=== PATIENT | female | born 1970 | race Caucasian/White ===

== ENCOUNTER 2024-08-07 19:42 | Emergency (ER) | payer OTHER, SELFPAY ==
[2024-08-07 19:51] VITALS: BP 177/100
[2024-08-07 20:05] VITALS: BP 160/84
[2024-08-07 20:13] VITALS: BMI 21.1
[2024-08-07 20:21] LABS: % Basophils 0.4 % (0-2); % Eosinophils 0.8 % (0-6); % Immature Granulocytes 0.2 % (0-0.5); % Lymphocytes 17.8 % (20.5-51.1); % Monocytes 4.6 % (1.7-9.3); % Neutrophils 76.2 % (42.2-75.2); Absolute Eosinophils 0.1 10^3/uL (0-0.7); Absolute Lymphocytes 1.6 10^3/uL (1.2-3.4); Absolute Monocytes 0.4 10^3/uL (0.1-0.6); Absolute Neutrophils 6.9 10^3/uL (1.4-6.5); Hematocrit 37.8 % (37.0-47.0); Hemoglobin 12.9 g/dL (12.0-16.0); Mean Corp Hgb Conc. 34.1 g/dL (33.0-37.0); Mean Corpuscular Hgb 29.9 pg (27.0-31.0); Mean Corpuscular Volume 87.5 fL (81.0-99.0); Mean Platelet Volume 10.4 fL (7.4-10.4); Nucleated Red Blood Cells % 0 %; Platelet Count 268 10^3/uL (130-400); Red Blood Cell Count 4.32 10^6/uL (4.20-5.40); Red Cell Dist. Width 11.9 % (11.5-14.5)
[2024-08-07 20:43] LABS: Urine Albumin Trace (Neg - Trace); Urine Bilirubin Negative (Negative); Urine Character Clear (Clear); Urine Color Yellow; Urine Glucose Negative (Negative); Urine Ketone Negative (Negative); Urine Leukocyte 2+ (Negative); Urine Nitrite Negative (Negative); Urine Occult Blood 4+ (Negative); Urine Urobilinogen Negative (Neg - 1+); Urine pH 6.5 (5.0-9.0)
--- NOTE | 2024-08-07 20:51 | ED.GENMED ---
Addendum entered and electronically signed by JOHNSON Moss 08/11/24 10:10:
Patient's urine culture shows E. coli however resistant to Cipro. I spoke with patient home over the phone. She is feeling better she denies any symptoms. Denies any back pain nausea vomiting fever chills urinary symptoms however will switch to
cefdinir. I did send this medication to patient's pharmacy discussed close outpatient follow-up family doctor and return if any worsening of symptoms.
Original Note:
History of Present Illness
<Leticia Hickman NP - Last Filed: 08/07/24 22:53>
General
Chief Complaint: Flank Pain
Source: patient
Exam Limitations: none
Time Seen by Provider: 08/07/24 20:04
Nursing documentation reviewed up to this point in time: agreed with
History of Present Illness
History of Present Illness:
Patient to ED with complaint of left flank pain. Symptoms started approx 1 week ago andcontinue to worsen. Denies fever/chills. No n/v. To ED accompanied by spouse for eval.
Past History
<Lteicia Hickman NP - Last Filed: 08/07/24 22:53>
Past History
ED Past Medical History: HTN
ED Past Surgical History: Gynecological (Tubal ligation)
Social History
Tobacco: Non-smoker
Alcohol: None
Drug: None
Review of Systems
<Leticia Hickman NP - Last Filed: 08/07/24 22:53>
Review of Systems
Allergies reviewed?: Yes
All Other Systems: ROS reviewed and negative except as documented in HPI and ROS
Constitutional: Reports no symptoms
EENT: Reports no symptoms
Respiratory: Reports no symptoms
Cardiac: Reports no symptoms
ABD/GI: Reports no symptoms
: Reports flank pain (left flank pain)
Musculoskeletal: Reports no symptoms
Skin: Reports no symptoms
Neurological: Reports no symptoms
Psychiatric: Reports no symptoms
Phy Exam
<Leticia Hickman CORING MACHINE OPERATOR - Last Filed: 08/07/24 22:53>
General Physical Exam
General Presentation: well appearing and no apparent distress
General age: appears stated age
General Skin: warm and dry
General Habitus: normal
General Mental: alert
Cardiovascular Exam
Cardiovascular Exam: regular rate/rhythm and no edema
Gastrointestinal Exam
Gastrointestinal Exam: normal bowel sounds, non tender, soft, no organomegaly and non distended
Musculoskeletal Exam
Musculoskeletal Exam: full ROM and neuro vasc intact
Skin Exam
Skin Exam: normal color, warm/dry and no rash
Psychiatric Exam
Psychiatric Exam: normal mood/affect
Course
<Leticia Hickman CORING MACHINE OPERATOR - Last Filed: 08/07/24 22:53>
Orders/Labs/Results
Orders:
Orders
08/07/24 20:15
CBC/With Diff [Complete Blood Count/With Diff] Urgent
CMP [Comprehensive Metabolic Panel] Urgent
Urinalysis Reflex To Culture Urgent
Date Specimen was Collected: 08/07/24
Time Specimen was Collected: 20:12
Urine Microscopic Reflex Cult Urgent
Urine Culture Urgent
LORIN Source: U
Specimen Description:
Date Specimen was Collected: 08/07/24
Time Specimen was Collected: 20:12
08/07/24 20:50
CT Abd/pel Without Iv Or Oral Urgent
Comment:
Reason For Exam: Left flank pain
Ketorolac [Toradol] 30 mg IV NOW STA
08/07/24 21:55
Ciprofloxacin HCl [Cipro] 500 mg PO NOW STA
Abnormal Lab Results
08/07/24
20:15
Absolute Neuts (auto) 6.9 H 10^3/uL
(1.4-6.5)
Neutrophils % 76.2 H %
(42.2-75.2)
Lymphocytes % 17.8 L %
(20.5-51.1)
BUN 21 H mg/dl
(7-17)
Glucose 133 H mg/dl
(70-99)
Ur Occult Blood Reflex 4+ A
(Negative)
Leukocyte Esterase Rfl 2+ A
(Negative)
Urine RBC 11-15 A /HPF
(0-2)
Urine WBC (Reflex) 90-100 A /HPF
(0-5)
Urine Bacteria (Reflex) Moderate A
(Negative)
08/07/24 20:15
08/07/24 20:15
Vital Signs
Initial and Last Documented VS:
Initial Vital Signs
Temp Pulse Resp BP Pulse Ox
98.1 F 67 18 177/100 98
08/07/24 19:51 08/07/24 19:51 08/07/24 19:51 08/07/24 19:51 08/07/24 19:51
Last Documented Vital Signs
Temp Pulse Resp BP Pulse Ox
98.3 F 66 18 174/97 100
08/07/24 22:11 08/07/24 22:11 08/07/24 19:51 08/07/24 22:11 08/07/24 22:11
Michaellt;Emmanuel Nowak PA-C - Last Filed: 08/10/24 07:32>
Orders/Labs/Results
Orders:
Orders
08/07/24 20:15
CBC/With Diff [Complete Blood Count/With Diff] Urgent
CMP [Comprehensive Metabolic Panel] Urgent
Urinalysis Reflex To Culture Urgent
Date Specimen was Collected: 08/07/24
Time Specimen was Collected: 20:12
Urine Microscopic Reflex Cult Urgent
Urine Culture Urgent
LORNI Source: U
Specimen Description:
Date Specimen was Collected: 08/07/24
Time Specimen was Collected: 20:12
08/07/24 20:50
CT Abd/pel Without Iv Or Oral Urgent
Comment:
Reason For Exam: Left flank pain
Ketorolac [Toradol] 30 mg IV NOW STA
08/07/24 21:55
Ciprofloxacin HCl [Cipro] 500 mg PO NOW STA
Abnormal Lab Results
08/07/24
20:15
Absolute Neuts (auto) 6.9 H 10^3/uL
(1.4-6.5)
Neutrophils % 76.2 H %
(42.2-75.2)
Lymphocytes % 17.8 L %
(20.5-51.1)
BUN 21 H mg/dl
(7-17)
Glucose 133 H mg/dl
(70-99)
Ur Occult Blood Reflex 4+ A
(Negative)
Leukocyte Esterase Rfl 2+ A
(Negative)
Urine RBC 11-15 A /HPF
(0-2)
Urine WBC (Reflex) 90-100 A /HPF
(0-5)
Urine Bacteria (Reflex) Moderate A
(Negative)
08/07/24 20:15
08/07/24 20:15
Vital Signs
Initial and Last Documented VS:
Initial Vital Signs
Temp Pulse Resp BP Pulse Ox
98.1 F 67 18 177/100 98
08/07/24 19:51 08/07/24 19:51 08/07/24 19:51 08/07/24 19:51 08/07/24 19:51
Last Documented Vital Signs
Temp Pulse Resp BP Pulse Ox
98.3 F 66 18 174/97 100
08/07/24 22:11 08/07/24 22:11 08/07/24 19:51 08/07/24 22:11 08/07/24 22:11
<Leticia Hickman NP - Last Filed: 08/07/24 22:53>
*Radiology
Radiology exam reviewed: radiology read reviewed
*Pulse Oximetry
Patient hypoxic: no
*Critical Care Note
Total Time (30-74mins, 75-104mins- exclusive of procedures): Not Applicable
<Leticia Hickman NP - Last Filed: 08/07/24 22:53>
Update Note
Update Note:
Labs, Ct results discussed with patient and spouse. UA consistent with UTI, CT suspecting ascending infection. VSS, afebrile. No abdominal pain, no vomiting. Nontoxic appearing. Cipro started in dept, rx sent to pharmacy. SHe was given
instructions on s/s to return to ED and she is agreeable to plan
<Emmanuel Nowak PA-C - Last Filed: 08/10/24 07:32>
Update Note
Update Note:
Labs, Ct results discussed with patient and spouse. UA consistent with UTI, CT suspecting ascending infection. VSS, afebrile. No abdominal pain, no vomiting. Nontoxic appearing. Cipro started in dept, rx sent to pharmacy. SHe was given
instructions on s/s to return to ED and she is agreeable to plan
August 10 7:31 AM: Appointment her urine culture shows greater than 100,000 colony-forming units of E. coli patient placed on Cipro. Sensitivities pending
ED Attending Note
<Leticia Hickman NP - Last Filed: 08/07/24 22:53>
-
Portions of this chart may have been created with voice recognition software.� Occasional wrong word or��sound alike� substitutions may have occurred due to the inherent limitations of voice recognition software.
Discharge Plan
Departure
Patient Disposition: Home (Routine Discharge)
Date of Disposition: 08/07/24
Time of Disposition: 21:56
Patient with high blood pressure during this ER visit?: No
Condition: Good
Covid-19: Not Applicable
Discharge Problem:
UTI (urinary tract infection)
Instructions: Urinary Tract Infection, Adult ED
Prescriptions:
New
ciprofloxacin HCl [Cipro] 500 mg tablet
500 mg PO BID Qty: 14 0RF
Referrals:
Tracee Ewing MD [Family Provider] - Tomorrow
Activity Restrictions/Additional Instructions:
Return to the emergency department immediately for fever/chills, increasing pain, any vomiting, or for any further concerns.
Interventions
Interventions:
*Risk Screen - Suicide Last Done: 08/07/24 20:14
*General Assessment Last Done: 08/07/24 20:14
*Neglect/Abuse Screening Last Done: 08/07/24 20:14
*ED COVID-19 Vaccine History Last Done: 08/07/24 20:14
*Nursing Disposition Last Done: 08/07/24 22:13
XW-Rwbdjo-Mrdspydxzl Assessment Last Done: 08/07/24 20:14
ED-Female Genitourinary Assessment Last Done: 08/07/24 20:14
Discharge Date and Time
Discharge Date/Time: 08/07/24 22:19
Print Language: WELSH
[2024-08-07] MEDS: TORADOL 30 MG IV (20:58)
[2024-08-07 21:00] LABS: Urine Bacteria Moderate (Negative); Urine White Cell 90-100 /HPF (0-5)
[2024-08-07 21:04] LABS: ALT (SGPT) 15 U/L (0-35); AST (SGOT) 25 U/L (14-36); Albumin 4.6 g/dl (3.5-5.0); Alkaline Phosphatase 65 U/L (38-126); Blood Urea Nitrogen 21 mg/dl (7-17); Carbon Dioxide 26 mmol/L (22-30); Chloride 102 mmol/L (98-107); Estimated Creatinine Clearance 73 ml/min; Glucose 133 mg/dl (70-99); Potassium 4.2 mmol/L (3.5-5.1); Sodium 141 mmol/L (135-145); Total Bilirubin 0.3 mg/dl (0.2-1.3); Total Protein 7.2 g/dl (6.3-8.2); eGFR > 60.00
[2024-08-07] MEDS: CIPRO 500 MG PO (22:07)
[2024-08-07 22:11] VITALS: BP 174/97
== END 2024-08-07 22:19 | disposition home or self-care (01) ==
LOC: EMR 19:42
PROVIDERS: Nurse Practitioner; EMERGENCY PHYSICIAN Student in an Organized Health Care Education/Training Program; FAMILY PHYSICIAN Family Medicine
DX: N39.0 Urinary tract infection, site not specified (principal)
CPT/HCPCS: 99284; 96374; 74176; 80053; 81003; 81015; 85025; 87077; 87086; 87186